=== PATIENT | male | born 1975 | race Caucasian/White ===

== ENCOUNTER 2016-10-17 17:42 | Emergency (ER) | payer OTHER ==
[~2016-10-17] VITALS: Ht 165.1 cm; Wt 85.5 kg
[2016-10-17 17:46] VITALS: Ht 165.1 cm; Wt 85.5 kg
[2016-10-17 19:10] LABS: ADD SCAN DIFF NO
[2016-10-17 19:18] LABS: ADD UMIC YES; URINE BILIRUBIN (Dip) NEGATIVE (NEGATIVE); URINE BLOOD (Dip) TRACE (NEGATIVE); URINE COLOR LT. YELLOW (YELLOW); URINE GLUCOSE (Dip) NEGATIVE (NEGATIVE); URINE KETONES (Dip) NEGATIVE (NEGATIVE); URINE LEUKOCYTE ESTERASE (Dip) NEGATIVE (NEGATIVE); URINE NITRITE (Dip) NEGATIVE (NEGATIVE); URINE TOTAL PROTEIN (Dip) NEGATIVE (NEGATIVE); URINE UROBILINOGEN (Dip) 0.2 E.U./dL (0.1-1.0)
[2016-10-17 19:26] LABS: ALBUMIN 4.2 g/dl (3.3-4.9); POTASSIUM 4.1 mmol/L (3.5-5.1)
[2016-10-17 19:28] LABS: CREATININE 1.09 mg/dl (0.61-1.24)
[2016-10-17 19:29] LABS: URINE RBCS 0-2 /HPF (0)
[2016-10-17 19:29] LABS: ALBUMIN/GLOBULIN RATIO 1.4; BILIRUBIN,INDIRECT 0.3 mg/dl (0-1.1); BILIRUBIN,TOTAL 0.3 mg/dl (0.2-1.3); CALCIUM 9.2 mg/dl (8.4-10.2); TOTAL PROTEIN 7.2 g/dl (6.1-8.1)
[2016-10-17 19:36] LABS: BASOPHIL # 0.1 10^3/ul (0.0-0.1); BASOPHILS % 0.6 % (0.0-2.0); EOSINOPHILS # 0.2 10^3/ul (0.0-0.5); HEMATOCRIT 46.6 % (42.0-52.0); HEMOGLOBIN 16.4 g/dl (14.0-18.0); LYMPHOCYTES # 2.6 10^3/ul (0.8-2.9); LYMPHOCYTES % 25.8 % (15.0-51.0); MEAN CORPUSCULAR HGB CONC 35.2 g/dl (32.0-37.0); MEAN CORPUSCULAR VOLUME 85.3 fl (82.0-101.0); MONOCYTE # 0.6 10^3/ul (0.3-0.9); MONOCYTES % 6.3 % (0.0-11.0); NEUTROPHIL # 6.5 10^3/ul (1.6-7.5); PLATELET COUNT 238 10^3/UL (140-415); RED BLOOD COUNT 5.46 10^6/ul (4.70-6.10); RED CELL DISTRIBUTION WIDTH 11.8 % (11.5-14.5)
--- NOTE | 2016-10-17 19:50 | ERD ---
ER Documentation Chief Complaint Date/Time DATE: 10/17/16 TIME: 19:50 Chief Complaint Complains of abdominal pain x 3 days HPI This is a 41-year-old male presenting to the emergency room complaining of left lower quadrant abdominal pain that comes and goes for the past 3 months. Patient states the past day the pain has been 8 out of 10 however he denies any current pain right now. Patient denies any fevers, nausea, vomiting, diarrhea. He states that his last bowel movement was couple hours ago and was normal. Patient states that his last meal was around 4 PM and he tolerated it well. Patient has never had any abdominal surgeries. ROS All systems reviewed and are negative except as per history of present illness. Medications Home Meds Active Scripts Ibuprofen* (Ibuprofen*) 600 Mg Tablet, 600 MG PO Q6H Y for PAIN, #30 TAB Prov:JAJA HARRIS PA-C 10/17/16 Hydrocodone/Acetaminophen ([place] 5-325 Tablet) 1 Each Tablet, 1 EACH PO Q4 Y for PAIN LEVEL 6-10, #7 TAB Prov:JAJA HARRIS PA-C 10/17/16 PMhx/Soc Medical and Surgical Hx: pt denies Medical Hx, pt denies Surgical Hx Hx Alcohol Use: Yes (SOCIAL DRINKER) Hx Substance Use: No Hx Tobacco Use: No Smoking Status: Never smoker Physical Exam Vitals Vital Signs Date Time Temp Pulse Resp B/P Pulse Ox O2 Delivery O2 Flow Rate FiO2 10/17/16 20:16 97.9 79 17 124/73 99 Room Air 10/17/16 17:46 97.8 69 20 132/78 99 Physical Exam GENERAL: well-developed/well-nourished, in no apparent distress, non-toxic appearing HENT: NC/AT, moist mucous membranes EYES: Conjunctiva normal NECK: Supple, no lymphadenopathy PULM: CTA bilaterally, no rales, rhonchi, or wheezing heard CV: Normal S1S2, RRR, good capillary refill GI: Soft, non-distended, non-tender to palpation Normal bowel sounds, no masses or organomegaly felt on exam No gross peritonitis, no bruits Negative Rovsing, negative Maddox, negative McBurney's point, Negative CVAT BACK: No masses EXT: No clubbing, cyanosis, or edema NEURO: Alert and Orientated SKIN: Intact, normal turgor PSYCH: Normal mood and mentation Result Diagram: 10/17/16184910/17/161849 Results 24 hrs Laboratory Tests Test 10/17/16 18:45 10/17/16 18:50 Urine Color LT. YELLOW Urine Clarity CLEAR Urine pH 5.5 Urine Specific [place] <=1.005 Urine Ketones NEGATIVE Urine Nitrite NEGATIVE Urine Bilirubin NEGATIVE Urine Urobilinogen 0.2 E.U./dL Urine Leukocyte Esterase NEGATIVE Urine Microscopic RBC 0-2/HPF Urine Microscopic WBC 0-2/HPF Urine Hemoglobin TRACE Urine Glucose NEGATIVE% Urine Total Protein NEGATIVE White Blood Count 10.010^3/ul Red Blood Count 5.4610^6/ul Hemoglobin 16.4g/dl Hematocrit 46.6% Mean Corpuscular Volume 85.3fl Mean Corpuscular Hemoglobin 30.0pg Mean Corpuscular Hemoglobin Concent 35.2g/dl Red Cell Distribution Width 11.8% Platelet Count 50041^3/UL Mean Platelet Volume 11.0fl Neutrophils % 65.0% Lymphocytes % 25.8% Monocytes % 6.3% Eosinophils % 2.0% Basophils % 0.6% Nucleated Red Blood Cells % 0.0/100WBC Neutrophils # 6.510^3/ul Lymphocytes # 2.610^3/ul Monocytes # 0.610^3/ul Eosinophils # 0.210^3/ul Basophils # 0.110^3/ul Nucleated Red Blood Cells # 0.010^3/ul Sodium Level 142mmol/L Potassium Level 4.1mmol/L Chloride Level 102mmol/L Carbon Dioxide Level 30mmol/L Anion Gap 14 Blood Urea Nitrogen 12mg/dl Creatinine 1.09mg/dl Glucose Level 77mg/dl Calcium Level 9.2mg/dl Total Bilirubin 0.3mg/dl Direct Bilirubin 0.00mg/dl Indirect Bilirubin 0.3mg/dl Aspartate Amino Transf (AST/SGOT) 21IU/L Alanine Aminotransferase (ALT/SGPT) 32IU/L Alkaline Phosphatase 81IU/L Total Protein 7.2g/dl Albumin 4.2g/dl Globulin 3.00g/dl Albumin/Globulin Ratio 1.40 Lipase 103U/L Procedures/MDM This is a 41-year-old male presenting to the emergency room complaining of left lower quadrant abdominal pain that comes and goes for the past 3 months. Patient states the past day the pain has been 8 out of 10 however he denies any current pain right now. Patient appears well, his abdominal exam was unremarkable. My differentials include but not limited to diverticulitis, never nephrolithiasis, appendicitis, hernia, pancreatitis, and other acute abdominal conditions vs nonspecific abdomen. I have discussed the risks versus the benefits of a CT scan, I have offered patient to do a CT scan of his abdomen to rule out any acute abdominal conditions however since patient does not have any abdominal pain at this time patient refuses CT scan. I discussed with patient that when he gets the pain again to return to the emergency department. Lab work was drawn. CBC did not show any evidence of leukocytosis or anemia. CMP did not show any evidence of renal, liver, or electrolyte abnormalities. Lipase was normal. UA did not show any evidence of hemoglobin or urinary tract infection. Patient was not given any pain medications in the ED. I discussed the patient return to the ER for any worsening signs or symptoms. A prescription for ibuprofen and [place] was provided. Patient understands and agrees with plan Departure Diagnosis: Primary Impression: Abdominal pain Condition: Stable JAJA HARRIS PA-C Oct 17, 2016 19:50
[2016-10-17] MEDS ORDERED: HYDR-906 PO (19:51)
[2016-10-17] MEDS ORDERED: IBUP-1542 PO (19:51)
[2016-10-17 20:16] VITALS: BP 124/73; PULSE 79; RESP 17; TEMP 97.9
== END 2016-10-17 20:18 | disposition home or self-care (01) ==
LOC: FTE 17:42
DX: R10.32 Left lower quadrant pain (principal)
CPT/HCPCS: 80053; 81001; 83690; 85025; Z7502; 81003; 99283

== ENCOUNTER 2016-10-19 14:31 | Emergency (ER) | payer OTHER ==
[~2016-10-19] VITALS: Ht 170.2 cm; Wt 84.0 kg
[~2016-10-19 14:31] MED LIST: HYDR-906 PO; IBUP-1542 PO
[2016-10-19 14:49] VITALS: Ht 170.2 cm; Wt 84.0 kg
--- NOTE | 2016-10-19 16:46 | RADRPT ---
PROCEDURE: CT abdomen and pelvis without contrast. CLINICAL INDICATION: Left lower quadrant pain TECHNIQUE: Continues 2.5 mm axial images were obtained from the domes of the diaphragms to the inf erior pubic rami. No oral or intravenous contrast was administered. The calculated dose length prod uct (DLP) = 1006.51 mGy-cm. Exam CTDlvol = 16.1 mGy. One or more of the following dose reduction techniques were used: Automated exposure control, adjustment of the mA and or KV according to patien t size, or use of iterative reconstruction technique. One or more of the following dose reduction t echniques were used: Automated exposure control, adjustment of the mA and or KV according to patient size, or use of iterative reconstruction technique. COMPARISON: None. FINDINGS: Lung bases are clear. No pleural pericardial fluid is seen. There is borderline cardiomegaly. Liver, gallbladder, pancreas, spleen, and adrenals are within normal limits. Demonstrates a 10.4 x 5.6 mm calorie nonobstructing calculus in the lower pole of the left kidney. There is mild fullness of the left ureter with minimal wall thickening. This may be secondary to a recently passed stone versus an ascending urinary tract infection. Correlation with urinalysis is recommended. The right kidney and collecting system are normal. There is a 1.5 and 1.3 cm right renal cyst. Aorta is nor mal in caliber. There is no pathologically enlarged mesenteric lymph nodes. The stomach and small bowel loops are within normal limits. No small bowel dilatation or obstruction is identified. Ther e is no free fluid, free air, abscess in the upper abdomen CT pelvis: Images through the pelvis demonstrate no free fluid, free air, abscess. Bladder is part ially distended. There are no obvious bladder calculi. Prostate and seminal vesicles are within no rmal limits. Evaluation of the colon demonstrates no diverticulosis, diverticulitis or acute coliti s. Normal appendix is visualized. Terminal ileum is unremarkable. There are no pathologically enl arged iliac chain lymph nodes. No destructive bony lesions are seen. There is partial sacralization of the L1 vertebral body. IMPRESSION: 1. 10.4 x 5.6 mm nonobstructing left lower pole intrarenal calculus. 2. Minimal fullness of the proximal left ureter with thickening of the wall and without significant calyceal dilatation. The appearance may be secondary to a recently passed renal stone/gravel versu s ascending urinary tract infection. Recommend correlation with urinalysis. 3. Right kidney and collecting system are normal. 4. Right renal cyst 5. No free fluid, free air, abscess in the abdomen or pelvis 6. Normal appendix. 7. Borderline cardiomegaly RPTAT: HH .Everett Camp MD, MD Date Time Electronically viewed and signed by .Everett Camp MD, on 10/19/2016 16:46 .W/
--- NOTE | 2016-10-19 17:01 | ERD ---
ER Documentation Chief Complaint Date/Time DATE: 10/19/16 TIME: 17:01 Chief Complaint LEFT LOWER QUAD PAIN, SEEN ON TUESDAY, DENIES PAIN NOW HPI This a 41-year-old male who presents the emergency department today complaining of left lower abdominal pain for the past couple of months. Patient states he was seen here on Tuesday and had blood work done but did not have any pain at that time. He states he was told to come back here when he had pain. Patient states he had pain upon arrival to the ER but had resolved. Denies any nausea vomiting,, diarrhea fevers or chills, back pain. Denies any testicular pain or swelling. ROS All systems reviewed and are negative except as per history of present illness. Medications Home Meds Active Scripts Ciprofloxacin Hcl* (Ciprofloxacin Hcl*) 500 Mg Tablet, 500 MG PO BID for 7 Days , TAB Prov:MARTY OROPEZAC 10/19/16 Naproxen* (Naprosyn*) 500 Mg Tablet, 500 MG PO BID Y for PAIN AND/OR INFLAMMATION, #30 TAB Prov:MARTY OROPEZAC 10/19/16 Hydrocodone/Acetaminophen ([place] 5-325 Tablet) 1 Each Tablet, 1 TAB PO Q6H Y for PAIN, #12 TAB Prov:MARTY OROPEZAC 10/19/16 Ibuprofen* (Ibuprofen*) 600 Mg Tablet, 600 MG PO Q6H Y for PAIN, #30 TAB Prov:JAJA HARRIS-C 10/17/16 Hydrocodone/Acetaminophen ([place] 5-325 Tablet) 1 Each Tablet, 1 EACH PO Q4 Y for PAIN LEVEL 6-10, #7 TAB Prov:JAJA HARRIS-C 10/17/16 Allergies Allergies: Coded Allergies: No Known Allergy (Unverified , 10/19/16) PMhx/Soc Medical and Surgical Hx: pt denies Medical Hx, pt denies Surgical Hx Hx Alcohol Use: Yes (SOCIAL DRINKER) Hx Substance Use: No Hx Tobacco Use: No Smoking Status: Never smoker Physical Exam Vitals Vital Signs Date Time Temp Pulse Resp B/P Pulse Ox O2 Delivery O2 Flow Rate FiO2 10/19/16 14:49 97.9 63 20 121/75 99 Physical Exam Const: No acute distress Head: Atraumatic Eyes: Normal Conjunctiva ENT: Normal External Ears, Nose and Mouth. Neck: Full range of motion..~ No meningismus. Resp: Clear to auscultation bilaterally Cardio: Regular rate and rhythm, no murmurs Abd: Soft, non tender, non distended. Normal bowel sounds. No right lower quadrant pain. No left lower quadrant pain. Skin: No petechiae or rashes Back: No midline or flank tenderness. No CVA tenderness. Ext: No cyanosis, or edema Neur: Awake and alert Psych: Normal Mood and Affect Results 24 hrs DIAGNOSTIC IMAGING REPORT Patient: GERARDO TEAGUE : 1975 Age: 41 Sex: M MR #: [id number] DOS: 10/19/16 1618 Ordering MD: MARTY OROPEZA PA-C Location: [facility] Room/Bed: PROCEDURE: CT abdomen and pelvis without contrast. CLINICAL INDICATION: Left lower quadrant pain TECHNIQUE: Continues 2.5 mm axial images were obtained from the domes of the diaphragms to the inferior pubic rami. No oral or intravenous contrast was administered. The calculated dose length product (DLP) = 1006.51 mGy-cm. Exam CTDlvol = 16.1 mGy. One or more of the following dose reduction techniques were used: Automated exposure control, adjustment of the mA and or KV according to patient size, or use of iterative reconstruction technique. One or more of the following dose reduction techniques were used: Automated exposure control, adjustment of the mA and or KV according to patient size, or use of iterative reconstruction technique. COMPARISON: None. FINDINGS: Lung bases are clear. No pleural pericardial fluid is seen. There is borderline cardiomegaly. Liver, gallbladder, pancreas, spleen, and adrenals are within normal limits. Demonstrates a 10.4 x 5.6 mm calorie nonobstructing calculus in the lower pole of the left kidney. There is mild fullness of the left ureter with minimal wall thickening. This may be secondary to a recently passed stone versus an ascending urinary tract infection. Correlation with urinalysis is recommended. The right kidney and collecting system are normal. There is a 1.5 and 1.3 cm right renal cyst. Aorta is normal in caliber. There is no pathologically enlarged mesenteric lymph nodes. The stomach and small bowel loops are within normal limits. No small bowel dilatation or obstruction is identified. There is no free fluid, free air, abscess in the upper abdomen CT pelvis: Images through the pelvis demonstrate no free fluid, free air, abscess. Bladder is partially distended. There are no obvious bladder calculi. Prostate and seminal vesicles are within normal limits. Evaluation of the colon demonstrates no diverticulosis, diverticulitis or acute colitis. Normal appendix is visualized. Terminal ileum is unremarkable. There are no pathologically enlarged iliac chain lymph nodes. No destructive bony lesions are seen. There is partial sacralization of the L1 vertebral body. IMPRESSION: 1. 10.4 x 5.6 mm nonobstructing left lower pole intrarenal calculus. 2. Minimal fullness of the proximal left ureter with thickening of the wall and without significant calyceal dilatation. The appearance may be secondary to a recently passed renal stone/gravel versus ascending urinary tract infection. Recommend correlation with urinalysis. 3. Right kidney and collecting system are normal. 4. Right renal cyst 5. No free fluid, free air, abscess in the abdomen or pelvis 6. Normal appendix. 7. Borderline cardiomegaly RPTAT: HH .Everett Camp MD, MD Date Time Electronically viewed and signed by .Everett Camp MD, MD on 10/19/2016 16:46 .W/ CC: MARTY OROPEZA PA-C Procedures/[facility] This is a 41-year-old male who presents to the emergency department today complaining of left lower quadrant pain that is been intermittent for the past couple of months. Patient did not have any abdominal pain on physical exam. Patient was seen here in the emergency department on October 17 and had laboratory work done at that time that was within normal limits. His UA was negative. I explained to the patient that I did not feel it was necessary to repeat laboratory work today as his last laboratory work was within normal limits. I did offer to obtain a CT of the abdomen and patient has agreed. I also obtained a UA UA shows trace leukocyte esterase and 3+ blood. Urine was sent for culture. CT abdomen pelvis noncontrast shows a 10.4 x 5.6 mm nonobstructing left lower pole intrarenal calculus. There is minimal fullness of the proximal left ureter with thickening of the wall without significant help dilatation. The appearance may be secondary to recently passed renal stone versus urinary tract infection. The right kidney and collecting system are normal. There is a right renal cyst. There is no free fluid, free air or abscess. There is appendix normal. There is borderline cardiomegaly. There is no small bowel dilatation or obstruction. Patients symptoms at this time most consistent with renal colic and urinary tract infection. Patient is afebrile and otherwise well-appearing. He is walking around the emergency room in no acute distress. He has no CVA tenderness. Low suspicion for pyelonephritis. Low suspicion for acute surgical abdomen. Patient will be given a prescription for [place], Naprosyn and Cipro. At this time the patient is stable for discharge and outpatient management. Patient should follow up with their PCP in the next 1-2 days. He was given a list of referrals as well as urology referrals. They may return to the emergency department sooner for any persistent or worsening of symptoms. Patient understood and agreed with the plan. Departure Diagnosis: Primary Impression: Kidney stones Additional Impression: UTI (urinary tract infection) Urinary tract infection type: site unspecified Hematuria presence: with hematuria Qualified Code: N39.0 - Urinary tract infection with hematuria, site unspecified Condition: MARTY Rios PA-C Oct 19, 2016 17:01
[2016-10-19] MEDS ORDERED: HYDR-906 PO (18:54)
[2016-10-19] MEDS ORDERED: CIPR500T4 PO (18:54)
[2016-10-19] MEDS ORDERED: NAPR-260 PO (18:54)
[2016-10-19 19:10] VITALS: BP 145/90; PULSE 58; RESP 18; TEMP 98.4
== END 2016-10-19 19:10 | disposition home or self-care (01) ==
LOC: FTE 14:31
DX: N20.0 Calculus of kidney (principal); N39.0 Urinary tract infection, site not specified
CPT/HCPCS: 74176; 81003; Z7502

== ENCOUNTER 2017-04-03 16:00 | Emergency (ER) | payer OTHER ==
[~2017-04-03] VITALS: Ht 162.6 cm; Wt 89.0 kg
[~2017-04-03 16:00] MED LIST changes: +CIPR500T4 PO; +NAPR-260 PO
[2017-04-03 16:01] VITALS: Ht 162.6 cm; Wt 89.0 kg
[2017-04-03] MEDS ORDERED: HYDROmorphONE 1 MG/ML SYG IV STA (16:56)
[2017-04-03] MEDS ORDERED: ONDANSETRON 4 MG INJ IV STA (16:56)
[2017-04-03] MEDS ORDERED: SOD CHLORIDE 0.9% 1,000 ML IV STA (16:56)
[2017-04-03] MEDS ORDERED: HYDR-906 PO (17:00)
[2017-04-03 17:20] LABS: ADD UMIC YES; UR ASCORBIC ACID NEGATIVE (NEGATIVE); UR BILIRUBIN (Dip) NEGATIVE (NEGATIVE); UR BLOOD (Dip) 1+ mg/dL (NEGATIVE); UR CLARITY SLIGHTLY CLOUDY (CLEAR); UR COLOR YELLOW (YELLOW); UR GLUCOSE (Dip) NEGATIVE (NEGATIVE); UR KETONES (Dip) NEGATIVE (NEGATIVE); UR LEUKOCYTE ESTERASE (Dip) TRACE Leu/ul (NEGATIVE); UR MUCUS FEW /HPF (NONE SEEN); UR NITRITE (Dip) NEGATIVE (NEGATIVE); UR RBC 26 /HPF (0-5); UR SPECIFIC GRAVITY (Dip) 1.023 (1.003-1.030); UR TOTAL PROTEIN (Dip) 2+ mg/dl (NEGATIVE); UR UROBILINOGEN (Dip) NEGATIVE (NEGATIVE)
[2017-04-03 17:24] LABS: BASOPHIL # 0.1 10^3/ul (0.0-0.1); BASOPHILS % 0.7 % (0.0-2.0); EOSINOPHILS # 0.3 10^3/ul (0.0-0.5); EOSINOPHILS % 3.9 % (0.0-7.0); HEMATOCRIT 45.9 % (42.0-52.0); HEMOGLOBIN 16.5 g/dl (14.0-18.0); LYMPHOCYTES # 2.1 10^3/ul (0.8-2.9); LYMPHOCYTES % 26.3 % (15.0-51.0); MEAN CORPUSCULAR HEMOGLOBIN 30.5 pg (29.0-33.0); MEAN CORPUSCULAR HGB CONC 35.9 g/dl (32.0-37.0); MEAN CORPUSCULAR VOLUME 84.8 fl (82.0-101.0); MEAN PLATELET VOLUME 11.1 fl (7.4-10.4); MONOCYTE # 0.6 10^3/ul (0.3-0.9); MONOCYTES % 7.5 % (0.0-11.0); NEUTROPHILS % 61.4 % (39.0-77.0); PLATELET COUNT 206 10^3/UL (140-415); RED BLOOD COUNT 5.41 10^6/ul (4.70-6.10); RED CELL DISTRIBUTION WIDTH 11.9 % (11.5-14.5); WHITE BLOOD COUNT 8.1 10^3/ul (4.8-10.8)
[2017-04-03 17:43] LABS: ALBUMIN 4.5 g/dl (3.3-4.9); ALBUMIN/GLOBULIN RATIO 1.36; BILIRUBIN,INDIRECT 0.6 mg/dl (0-1.1); BILIRUBIN,TOTAL 0.6 mg/dl (0.2-1.3); CALCIUM 9.1 mg/dl (8.4-10.2); CREATININE 0.81 mg/dl (0.61-1.24); POTASSIUM 3.8 mmol/L (3.5-5.1); TOTAL PROTEIN 7.8 g/dl (6.1-8.1)
[2017-04-03] MEDS ORDERED: CIPR500T4 PO (18:06)
[2017-04-03 19:13] VITALS: BP 121/71; PULSE 61; RESP 16
--- NOTE | 2017-04-03 21:11 | ERD ---
ER Documentation Chief Complaint Date/Time DATE: 04/03/17 TIME: 21:06 Chief Complaint left flank pain, has kidney stone needs pain control, x 3 days HPI 41-year-old male history of nephrolithiasis presents to the emergency department with persistent intent moderate to severe left flank pain for the past few months. Patient is a 10-11 mm renal stone scheduled to have lithotripsy tomorrow morning with the urologist. Patient presents today for pain control since patient was instructed to not take any NSAIDs and he was confused on what medication to take. He denies any fevers, painful urination. He admits to having hematuria. ROS All systems reviewed and are negative except as per history of present illness. Medications Home Meds Active Scripts Ciprofloxacin Hcl* (Ciprofloxacin Hcl*) 500 Mg Tablet, 500 MG PO BID for 7 Days , TAB Prov:JAJA HARRIS-C 04/03/17 Hydrocodone/Acetaminophen ([place] 5-325 Tablet) 1 Each Tablet, 1-2 TAB PO Q6H Y for PAIN, #30 TAB Prov:JAJA HARRISC 04/03/17 Ciprofloxacin Hcl* (Ciprofloxacin Hcl*) 500 Mg Tablet, 500 MG PO BID for 7 Days , TAB Prov:MARTY OROPEZAC 10/19/16 Naproxen* (Naprosyn*) 500 Mg Tablet, 500 MG PO BID Y for PAIN AND/OR INFLAMMATION, #30 TAB Prov:MARTY OROPEZAC 10/19/16 Hydrocodone/Acetaminophen ([place] 5-325 Tablet) 1 Each Tablet, 1 TAB PO Q6H Y for PAIN, #12 TAB Prov:MARTY OROPEZAC 10/19/16 Ibuprofen* (Ibuprofen*) 600 Mg Tablet, 600 MG PO Q6H Y for PAIN, #30 TAB Prov:JAJA HARRISC 10/17/16 Hydrocodone/Acetaminophen ([place] 5-325 Tablet) 1 Each Tablet, 1 EACH PO Q4 Y for PAIN LEVEL 6-10, #7 TAB Prov:JAJA HARRIS-C 10/17/16 Allergies Allergies: Coded Allergies: No Known Allergy (Unverified , 10/19/16) PMhx/Soc Medical and Surgical Hx: pt denies Medical Hx, pt denies Surgical Hx Hx Alcohol Use: Yes (SOCIAL DRINKER) Hx Substance Use: No Hx Tobacco Use: No Smoking Status: Never smoker Physical Exam Vitals Vital Signs Date Time Temp Pulse Resp B/P Pulse Ox O2 Delivery O2 Flow Rate FiO2 04/03/17 19:13 61 16 121/71 99 Room Air 04/03/17 16:01 98.1 72 18 132/71 99 Physical Exam Const: Well-nourished no acute distress Head: Atraumatic Eyes: Normal Conjunctiva ENT: Normal External Ears, Nose and Mouth. Neck: Full range of motion..~ No meningismus. Resp: Clear to auscultation bilaterally Cardio: Regular rate and rhythm, no murmurs Abd: Soft, non tender, non distended. Normal bowel sounds Skin: No petechiae or rashes Back: No midline or flank tenderness Ext: No cyanosis, or edema Neur: Awake and alert Psych: Normal Mood and Affect Result Diagram: 04/03/17 1710 04/03/17 1710 Results 24 hrs Laboratory Tests Test 04/03/17 17:00 04/03/17 17:10 Urine Color YELLOW Urine Clarity SLIGHTLY CLOUDY Urine pH 5.0 Urine Specific [place] 1.023 Urine Ketones NEGATIVEmg/dL Urine Nitrite NEGATIVEmg/dL Urine Bilirubin NEGATIVEmg/dL Urine Urobilinogen NEGATIVEmg/dL Urine Leukocyte Esterase TRACELeu/ul Urine Microscopic RBC 26/HPF Urine Microscopic WBC 14/HPF Urine Calcium Oxalate Crystals MODERATE/HPF Urine Mucus FEW/HPF Urine Hemoglobin 1+mg/dL Urine Glucose NEGATIVEmg/dL Urine Total Protein 2+mg/dl White Blood Count 8.110^3/ul Red Blood Count 5.4110^6/ul Hemoglobin 16.5g/dl Hematocrit 45.9% Mean Corpuscular Volume 84.8fl Mean Corpuscular Hemoglobin 30.5pg Mean Corpuscular Hemoglobin Concent 35.9g/dl Red Cell Distribution Width 11.9% Platelet Count 75965^3/UL Mean Platelet Volume 11.1fl Neutrophils % 61.4% Lymphocytes % 26.3% Monocytes % 7.5% Eosinophils % 3.9% Basophils % 0.7% Nucleated Red Blood Cells % 0.0/100WBC Neutrophils # (Manual) 5.010^3/ul Lymphocytes # 2.110^3/ul Monocytes # 0.610^3/ul Eosinophils # 0.310^3/ul Basophils # 0.110^3/ul Nucleated Red Blood Cells # 0.010^3/ul Sodium Level 141mmol/L Potassium Level 3.8mmol/L Chloride Level 104mmol/L Carbon Dioxide Level 27mmol/L Anion Gap 14 Blood Urea Nitrogen 10mg/dl Creatinine 0.81mg/dl Glucose Level 99mg/dl Calcium Level 9.1mg/dl Total Bilirubin 0.6mg/dl Direct Bilirubin 0.00mg/dl Indirect Bilirubin 0.6mg/dl Aspartate Amino Transf (AST/SGOT) 20IU/L Alanine Aminotransferase (ALT/SGPT) 39IU/L Alkaline Phosphatase 80IU/L Total Protein 7.8g/dl Albumin 4.5g/dl Globulin 3.30g/dl Albumin/Globulin Ratio 1.36 Lipase 89U/L Current Medications Medications (Trade) Dose Ordered Sig/Bruce Route PRN Reason Start Time Stop Time Status Last Admin Dose Admin Sodium Chloride (NS) 1,000 ml @ 1,000 mls/hr Q1H STAT IV 04/03/17 16:56 04/03/17 17:55 DC 04/03/17 17:19 Hydromorphone HCl (Dilaudid) 0.5 mg ONCE STAT IV 04/03/17 16:56 04/03/17 16:58 DC 04/03/17 17:19 Ondansetron HCl (Zofran Inj) 4 mg ONCE STAT IV 04/03/17 16:56 04/03/17 16:58 DC 04/03/17 17:19 Procedures/MDM 41-year-old male with nephrolithiasis 10 mm renal stone who is planned to have lithotripsy tomorrow. Patient presents today for pain control since he was instructed to not take any NSAIDs for the surgery, he was confused on what medication to take. IV access established, patient was given 1 L of fluids Dilaudid and Zofran. Patient has significant improvement in pain. Patient stable to be discharged home to follow-up with his surgeon as planned. CBC did not show any leukocytosis or anemia. CMP did not show any evidence of renal failure. UA showed trace leukocyte esterase, 14 WBC, no nitrite. I have consulted with my supervising physician , this is likely not a urinary tract infection however prescription for Cipro was provided. Given patient the diagnostic testing and forms for him to show his surgery tomorrow. Patient stable to discharged home and instructed to follow-up as planned. He understands and agrees with this plan Departure Diagnosis: Primary Impression: Nephrolithiasis Condition: Stable Patient Instructions: Kidney Stone (Urine) Additional Instructions: Visite a starr mdico maana para un EXAMEN.Regrese a estas instalaciones si no se mejora chris esperbamos o chris le dijimos. [place] toda la medicina elizabeth y chris se le indic. Regrese a estas instalaciones si no se mejora chris esperbamos o chris le dijimos. Visite a starr mdbraeden leahy para un EXAMEN.Regrese a estas instalaciones si no se mejora chris esperbamos o chris le dijimos. La medicina que se le recet puede causarle sueo.NO DEBE MANEJAR NI OPERAR MAQUINARIAS PELIGROSAS mientras esta tomando esta medicina! JAJA HARRIS PA-C Apr 03, 2017 21:11
== END 2017-04-03 19:13 | disposition home or self-care (01) ==
LOC: FTE 16:00
DX: N20.0 Calculus of kidney (principal)
CPT/HCPCS: 36415; 80053; 81001; 83690; 85025; 96374; 96375; J1170; J2405; J7030; Z7502

== ENCOUNTER 2017-04-09 08:29 | Emergency (ER) | payer OTHER ==
[~2017-04-09] VITALS: Ht 167.6 cm; Wt 83.0 kg
[2017-04-09 08:31] VITALS: Ht 167.6 cm; Wt 83.0 kg
[2017-04-09] MEDS ORDERED: CHLORPROMAZINE 25 MG INJ IM ONE (09:00)
--- NOTE | 2017-04-09 09:18 | ERD ---
ER Documentation Chief Complaint Date/Time DATE: 04/09/17 TIME: 09:14 Chief Complaint HICCUPS X 4 DAYS, DENIES PAIN,NO N/V. HX OF KIDNEY STONE SURGERY 04/04/17 HPI This a 41-year-old male who presents the emergency department today with his for complaints of hiccups for the past 4 days. Per patient had surgery for kidney stones on April 04 and the patient started with hiccups on April 05. They have been slowly getting more persistent. States that he was "knocked out during surgery" but is unsure what kind of anesthesia he has had. States that he had been taking antibiotics but completed his course yesterday. States he took [place] this morning. Denies any fevers or chills or pain. ROS All systems reviewed and are negative except as per history of present illness. Medications Home Meds Active Scripts Metoclopramide* (Reglan*) 10 Mg Tablet, 10 MG PO TID Y for NAUSEA AND/OR VOMITING for 7 Days, #21 TAB Prov:MARTY OROPEZA PA-C 04/09/17 Ciprofloxacin Hcl* (Ciprofloxacin Hcl*) 500 Mg Tablet, 500 MG PO BID for 7 Days , TAB Prov:JAJA HARRISC 04/03/17 Hydrocodone/Acetaminophen ([place] 5-325 Tablet) 1 Each Tablet, 1-2 TAB PO Q6H Y for PAIN, #30 TAB Prov:JAJA HARRISC 04/03/17 Ciprofloxacin Hcl* (Ciprofloxacin Hcl*) 500 Mg Tablet, 500 MG PO BID for 7 Days , TAB Prov:MARTY OROPEZA PA-C 10/19/16 Naproxen* (Naprosyn*) 500 Mg Tablet, 500 MG PO BID Y for PAIN AND/OR INFLAMMATION, #30 TAB Prov:MARTY OROPEZAC 10/19/16 Hydrocodone/Acetaminophen ([place] 5-325 Tablet) 1 Each Tablet, 1 TAB PO Q6H Y for PAIN, #12 TAB Prov:MARTY OROPEZAC 10/19/16 Ibuprofen* (Ibuprofen*) 600 Mg Tablet, 600 MG PO Q6H Y for PAIN, #30 TAB Prov:JAJA HARRISC 10/17/16 Hydrocodone/Acetaminophen ([place] 5-325 Tablet) 1 Each Tablet, 1 EACH PO Q4 Y for PAIN LEVEL 6-10, #7 TAB Prov:JAJA HARRIS PA-C 10/17/16 Allergies Allergies: Coded Allergies: No Known Allergy (Unverified , 04/09/17) PMhx/Soc Medical and Surgical Hx: pt denies Surgical Hx History of Surgery: Yes (Kidney stone removal 04/04/17) Hx Alcohol Use: Yes (SOCIAL DRINKER) Hx Substance Use: No Hx Tobacco Use: No Smoking Status: Never smoker Physical Exam Vitals Vital Signs Date Time Temp Pulse Resp B/P Pulse Ox O2 Delivery O2 Flow Rate FiO2 04/09/17 08:31 99.0 69 20 135/82 99 Physical Exam Const: NAD Head: Atraumatic Eyes: Normal Conjunctiva ENT: Normal External Ears, Nose and Mouth. Neck: Full range of motion..~ No meningismus. Resp: Clear to auscultation bilaterally. No absent breath sounds. No wheezing. Cardio: Regular rate and rhythm, no murmurs Abd: Soft, non tender, non distended. Normal bowel sounds Skin: No petechiae or rashes Back: No midline or flank tenderness Ext: No cyanosis, or edema Neur: Awake and alert Psych: Normal Mood and Affect Results 24 hrs Current Medications Medications (Trade) Dose Ordered Sig/Bruce Route PRN Reason Start Time Stop Time Status Last Admin Dose Admin Chlorpromazine (Thorazine) 25 mg ONCE ONCE IM 04/09/17 09:00 04/09/17 09:04 DC 04/09/17 09:28 DIAGNOSTIC IMAGING REPORT Patient: GERARDO TEAGUE : 1975 Age: 41 Sex: M MR #: [id number] DOS: 04/09/17 0000 Ordering MD: MARTY OROPEZA PA-C Location: [facility] Room/Bed: PROCEDURE: XR Chest. CLINICAL INDICATION: chest pain TECHNIQUE: Single frontal view of the chest was obtained COMPARISON: None FINDINGS: The heart and mediastinum are within normal limits. The lungs are clear. There is no pleural effusion or pneumothorax. RPTAT: AA IMPRESSION: No acute disease. .Freedom Riojas MD, MD Date Time Electronically viewed and signed by .Freedom Riojas MD, MD on 04/09/2017 09: 30 .S/ CC: MARTY OROPEZA PA-C Procedures/MDM This is a 41-year-old male who presents to the emergency department today with persistent hiccups for the past 4 days. Patient started with hiccups after having surgery for kidney stones the day prior. Patient's urologist is Dr. Lee. Patient denies any pain or other symptoms at this time. Per report of the the patient had shockwave treatment but also surgery was through the patient's urethra and stents were placed to help remove the stones. Patient was unable to tell me about anesthesia however I suspect that patient was placed under general anesthesia and this may be result of that. I did discuss the patient with Dr. Reed and he has recommended an EKG and a chest x-ray. EKG read and interpreted by Dr. Reed. Rate [address] elevation. No QT prolongation. Low suspicion for acute PR, PE, pericarditis. CXRIs negative. Lungs are clear. There is no pleural effusion or pneumothorax. Patient's abdomen is soft and nontender. He has no pain and no other complaints and of low suspicion for perforation or free air or diaphragmatic abscess.Hiccups at this time likely from postoperative changes Patient was given 25 mg of Thorazine here in the emergency department. Patient continues to hiccup however it appeared to have slowed down..He will be given a prescription for Reglan for home. I have explained to the patient that this is not a life-threatening condition and that he may follow-up with his primary care doctor. Discussed the patient with both Dr. Reed and Dr. Brito and they are in agreement with the plan. Departure Diagnosis: Primary Impression: Hiccoughs Condition: Fair MARTY OROPEZA PA-C Apr 09, 2017 09:18
--- NOTE | 2017-04-09 09:30 | RADRPT ---
PROCEDURE: XR Chest. CLINICAL INDICATION: chest pain TECHNIQUE: Single frontal view of the chest was obtained COMPARISON: None FINDINGS: The heart and mediastinum are within normal limits. The lungs are clear. There is no pleural effusion or pneumothorax. RPTAT: AA IMPRESSION: No acute disease. .Freedom Riojas MD, Date Time Electronically viewed and signed by .Freedom Riojas MD, on 04/09/2017 09:30 .S/
[2017-04-09] MEDS ORDERED: METO10TA92 PO (10:18)
== END 2017-04-09 10:31 | disposition home or self-care (01) ==
LOC: FTE 08:29
DX: R06.6 Hiccough (principal); R07.9 Chest pain, unspecified
CPT/HCPCS: 71010; 93005; 96372; J3230; Z7502

== ENCOUNTER 2017-07-20 11:18 | Emergency (ER) | payer OTHER ==
[~2017-07-20] VITALS: Wt 89.0 kg
[~2017-07-20 11:18] MED LIST changes: +METO10TA92 PO
[2017-07-20] MEDS ORDERED: IBUP-1542 PO (13:54)
[2017-07-20] MEDS ORDERED: AMOX500C2 PO (13:54)
--- NOTE | 2017-07-20 18:46 | ERD ---
ER Documentation Chief Complaint Chief Complaint [facility] Patient is 41-year-old male who presents ED for concerns of throat pain 1 week reports pain with swallowing. Patient denies any drooling, trismus or hyperextension of his neck. Patient denies any fevers or chills. Patient denies any nausea, vomiting, diarrhea or abdominal pain. Patient denies any chest pain, shortness of breath, cough, left upper extremity pain or diaphoresis. Patient does report some right ear pain. No recent travel. No sick contacts. ROS All systems reviewed and are negative except as per history of present illness. Medications Home Meds Active Scripts Ibuprofen* (Motrin*) 600 Mg Tab, 600 MG PO Q6, #30 TAB Prov:JOVANI MILESC 07/20/17 Amoxicillin* (Amoxicillin*) 500 Mg Cap, 500 MG PO BID for 7 Days, CAP Prov:JOVANI MILESC 07/20/17 Metoclopramide* (Reglan*) 10 Mg Tablet, 10 MG PO TID Y for NAUSEA AND/OR VOMITING for 7 Days, #21 TAB Prov:MARTY OROPEZAC 04/09/17 Ciprofloxacin Hcl* (Ciprofloxacin Hcl*) 500 Mg Tablet, 500 MG PO BID for 7 Days , TAB Prov:JAJA HARRISC 04/03/17 Hydrocodone/Acetaminophen ([place] 5-325 Tablet) 1 Each Tablet, 1-2 TAB PO Q6H Y for PAIN, #30 TAB Prov:JAJA HARRISC 04/03/17 Ciprofloxacin Hcl* (Ciprofloxacin Hcl*) 500 Mg Tablet, 500 MG PO BID for 7 Days , TAB Prov:MARTY OROPEZAC 10/19/16 Naproxen* (Naprosyn*) 500 Mg Tablet, 500 MG PO BID Y for PAIN AND/OR INFLAMMATION, #30 TAB Prov:MARTY OROPEZAC 10/19/16 Hydrocodone/Acetaminophen ([place] 5-325 Tablet) 1 Each Tablet, 1 TAB PO Q6H Y for PAIN, #12 TAB Prov:MARTY OROPEZAC 10/19/16 Ibuprofen* (Ibuprofen*) 600 Mg Tablet, 600 MG PO Q6H Y for PAIN, #30 TAB Prov:BERNADINE HARRISSHA N. PA-C 10/17/16 Hydrocodone/Acetaminophen ([place] 5-325 Tablet) 1 Each Tablet, 1 EACH PO Q4 Y for PAIN LEVEL 6-10, #7 TAB Prov:BERNADINE HARRISJAYDENMike Brianne KINGSLEY 10/17/16 Allergies Allergies: Coded Allergies: No Known Allergy (Unverified , 07/20/17) PMhx/Soc History of Surgery: Yes (LITHOTRIPSY 2017) Anesthesia Reaction: No Hx Neurological Disorder: No Hx Respiratory Disorders: No Hx Cardiac Disorders: No Hx Psychiatric Problems: No Hx Miscellaneous Medical Probl: Yes (LEFT KIDNEY STONE) Hx Alcohol Use: No Hx Substance Use: No Hx Tobacco Use: No Smoking Status: Never smoker Physical Exam Vitals Vital Signs Date Time Temp Pulse Resp B/P Pulse Ox O2 Delivery O2 Flow Rate FiO2 07/20/17 11:22 98.7 60 18 131/76 99 Physical Exam GENERAL: Well-developed, well-nourished male. Appears in no acute distress. HEAD: Normocephalic, atraumatic. No deformities or ecchymosis. EYE: Pupils equal, round, and reactive to light. EOMs intact. No conjunctival erythema. No eye discharge. ENT: External ear without any masses or tenderness. Right auditory canal appears erythematous. Right tympanic membrane appears erythematous and bulging. TM normal. No mass or tenderness. Nasal mucosa pink with no discharge. Oropharynx is erythematous with bilateral tonsillar enlargement. No kissing tonsils. No unilateral or tonsillar swelling. No trismus. No drooling. NECK: Supple. No meningismus. Normal ROM of the neck. LUNGS: Clear to auscultation bilaterally. No rhonchi, wheezing, rales or coarse breath sounds. HEART: Regular rate and rhythm. No murmurs, rubs or gallops. EXTREMITES: Equal pulses bilaterally. No peripheral clubbing, cyanosis or edema. No unilateral leg swelling. NEUROLOGIC: Alert and oriented to person, place and time. Moving all four extremities. 5/5 strength in all extremities. Normal speech. Steady gait. SKIN: Normal color. Warm and dry. No rashes or lesions. Procedures/MDM MEDICAL DECISION MAKING: This is a 41-year-old male presents with throat pain 1 week. Vital signs were reviewed. Patient was afebrile. Patient was not hypoxic. The patient does not have trismus, muffled voice, uvula deviation, unilateral tonsillar swelling, or drooling. No signs of neck swelling or hyperextension of the neck noted. Physical exam findings are concerning for strep pharyngitis and acute otitis media. I will treat patient with a course of antibiotics at this time. I have a much lower clinical suspicion for epiglottitis, peritonsillar abscess, retropharyngeal abscess, [place] angina, strep pharyngitis, viral pharyngitis, dental abscess, pneumonia, pneumothorax, mastoiditis, meningitis or sepsis. It was nontoxic, [id number] prior to discharge. PRESCRIPTIONS: Amoxicillin. Patient advised to take full course of antibiotics. Ibuprofen DISCHARGE: At this time, patient is stable for discharge and outpatient management. Supportive therapies such as OTC throat lozenges and warm salt water gurgles were discussed. I have instructed the patient to follow-up with his/her primary care physician in 1-2 days. I have discussed with the patient the possibility of needing to see a specialist for further workup and imaging studies if symptoms persist. I have instructed the patient to promptly return to the ER for any new or worsening symptoms including increased pain, fever, nausea, vomiting, weakness or LOC. The patient and/or family expressed understanding of and agreement with this plan. All questions were answered. Home care instructions were provided. Disclaimer: Inadvertent spelling and grammatical errors are likely due to EHR/ dictation software use and do not reflect on the overall quality of patient care. Also, please note that the electronic time recorded on this note does not necessarily reflect the actual time of the patient encounter. Departure Diagnosis: Primary Impression: Strep pharyngitis Additional Impression: Otitis media Otitis media type: unspecified Laterality: unspecified laterality Qualified Code: H66.90 - Otitis media, unspecified laterality, unspecified otitis media type Condition: Stable Patient Instructions: Otitis Media, Abx Tx (Adult), Pharyngitis, Strep ( Presumed) Additional Instructions: Call your primary care doctor TOMORROW for an appointment during the next 1-2 days.See the doctor sooner or return here if your condition worsens before your appointment time. JOVANI MILES PA-C Jul 20, 2017 18:46
== END 2017-07-20 14:12 | disposition home or self-care (01) ==
LOC: FTE 11:18
DX: J02.0 Streptococcal pharyngitis (principal); H66.91 Otitis media, unspecified, right ear
CPT/HCPCS: 99283

== ENCOUNTER 2017-10-05 16:32 | Emergency (ER) | END 2017-10-05 19:10 | disposition home or self-care (01) ==

== ENCOUNTER 2018-12-30 20:22 | Emergency (ER) | payer OTHER ==
[~2018-12-30] VITALS: Ht 170.2 cm; Wt 84.6 kg
[~2018-12-30 20:22] MED LIST changes: +AMOX1TAB10 PO; +AMOX500C2 PO; +HYDR-4011 PO; -HYDR-906 PO; -NAPR-260 PO; +NAPR-985 PO
[2018-12-30 20:24] VITALS: Ht 170.2 cm; Wt 84.6 kg
[2018-12-30] MEDS ORDERED: CLOT30CR24 TOP (21:23)
--- NOTE | 2018-12-30 21:25 | ERD ---
ER Documentation Chief Complaint Chief Complaint SKIN RASH X'S 6 WEEKS ROS All systems reviewed and are negative except as per history of present illness. Medications Home Meds Active Scripts Clotrimazole* (Clotrimazole* AF) 1% - 30 Gm Cream.gm., 1 APPLIC TOP BID for fungal rash for 28 Days, #1 TUB Prov:SAE HILL 12/30/18 Ibuprofen* (Motrin*) 600 Mg Tab, 600 MG PO Q6, #30 TAB Prov:JANETTE CHANDLER PA-C 10/05/17 Hydrocodone/Acetaminophen ([place] 5-325 Tablet) 1 Each Tablet, 1 TAB PO Q6H PRN for PAIN, #7 TAB Prov:JANETTE CHANDLER PA-C 10/05/17 Amoxicillin/Potassium Clav (Amox-Clav 875-125 mg Tablet) 875-125 mg Tab, 1 TAB PO BID for 7 Days, #14 TAB Prov:JANETTE CHANDLER PA-C 10/05/17 Ibuprofen* (Motrin*) 600 Mg Tab, 600 MG PO Q6, #30 TAB Prov:JOVANI MILES PA-C 07/20/17 Amoxicillin* (Amoxicillin*) 500 Mg Cap, 500 MG PO BID for 7 Days, CAP Prov:JOVANI MILES PA-C 07/20/17 Metoclopramide* (Reglan*) 10 Mg Tablet, 10 MG PO TID PRN for NAUSEA AND/OR VOMITING for 7 Days, #21 TAB Prov:MARTY OROPEZA PA-C 04/09/17 Ciprofloxacin Hcl* (Ciprofloxacin Hcl*) 500 Mg Tablet, 500 MG PO BID for 7 Days, TAB Prov:JAJA HARRIS PA-C 04/03/17 Hydrocodone/Acetaminophen ([place] 5-325 Tablet) 1 Each Tablet, 1-2 TAB PO Q6H PRN for PAIN, #30 TAB Prov:JAJA HARRIS PA-C 04/03/17 Ciprofloxacin Hcl* (Ciprofloxacin Hcl*) 500 Mg Tablet, 500 MG PO BID for 7 Days, TAB Prov:MARTY OROPEZA PA-C 10/19/16 Naproxen* (Naprosyn*) 500 Mg Tablet, 500 MG PO BID PRN for PAIN AND/OR IN FLAMMATION, #30 TAB Prov:MARTY OROPEZA PA-C 10/19/16 Hydrocodone/Acetaminophen ([place] 5-325 Tablet) 1 Each Tablet, 1 TAB PO Q6H PRN for PAIN, #12 TAB Prov:MARTY OROPEAZRadha KINGSLEY 10/19/16 Ibuprofen* (Ibuprofen*) 600 Mg Tablet, 600 MG PO Q6H PRN for PAIN, #30 TAB Prov:JAJA HARRIS PA-C 10/17/16 Hydrocodone/Acetaminophen ([place] 5-325 Tablet) 1 Each Tablet, 1 EACH PO Q4 PRN for PAIN LEVEL 6-10, #7 TAB Prov:JAJA HARRIS-C 10/17/16 Allergies Allergies: Coded Allergies: No Known Allergy (Unverified , 07/20/17) PMhx/Soc History of Surgery: Yes (LITHOTRIPSY 2016) Anesthesia Reaction: No Hx Neurological Disorder: No Hx Respiratory Disorders: No Hx Cardiac Disorders: No Hx Psychiatric Problems: No Hx Miscellaneous Medical Probl: Yes (LEFT KIDNEY STONE) Hx Alcohol Use: No Hx Substance Use: No Hx Tobacco Use: No Smoking Status: Never smoker Physical Exam Vitals Vital Signs Date Temp Pulse Resp B/P (MAP) Pulse Ox O2 O2 Flow FiO2 Time Delivery Rate 12/30/18 98.3 65 18 125/72 100 20:24 (89) Physical Exam Const: No acute distress Head: Atraumatic Eyes: Normal Conjunctiva ENT: Normal External Ears, Nose and Mouth. Neck: Full range of motion. No meningismus. Resp: Clear to auscultation bilaterally Cardio: Regular rate and rhythm, no murmurs Abd: Soft, non tender, non distended. Normal bowel sounds Skin: No petechiae or rashes Back: No midline or flank tenderness Ext: No cyanosis, or edema Neur: Awake and alert Psych: Normal Mood and Affect Departure Diagnosis: Primary Impression: Rash Condition: Fair Patient Instructions: Self-Care for Skin Rashes, Tinea Corporis Referrals: COMMUNITY CLINICS YOU HAVE RECEIVED A MEDICAL SCREENING EXAM AND THE RESULTS INDICATE THAT YOU DO NOT HAVE A CONDITION THAT REQUIRES URGENT TREATMENT IN THE EMERGENCY DEPARTMENT. FURTHER EVALUATION AND TREATMENT OF YOUR CONDITION CAN WAIT UNTIL YOU ARE SEEN IN YOUR DOCTORS OFFICE WITHIN THE NEXT 1-2 DAYS. IT IS YOUR RESPONSIBILITY TO MAKE AN APPOINTMENT FOR FOLOW-UP CARE. IF YOU HAVE A PRIMARY DOCTOR --you should call your primary doctor and schedule an appointment IF YOU DO NOT HAVE A PRIMARY DOCTOR YOU CAN CALL OUR PHYSICIAN REFERRAL HOTLINE AT IF YOU CAN NOT AFFORD TO SEE A PHYSICIAN YOU CAN CHOSE FROM THE FOLLOWING [facility] [address] [facility] [address] [facility] [address] [facility] [address] [facility] [address] [facility]. [facility]. [address] Additional Instructions: Llame al doctor MAANA y abraham mame GUILLERMO PARA DENTRO DE 1-2 [place].Dgale a la secretaria que nosotros le instruimos hacer esta guillermo.Avise o llame si starr condicin se empeora antes de la guillermo. Regresa aqui si peor o no mejor. Call your primary care doctor TOMORROW for an appointment during the next 1-2 days.See the doctor sooner or return here if your condition worsens before your appointment time. Follow up with casino dealer if skin rash does not improved with treatment. SAE HILL DO Dec 30, 2018 21:25
[2018-12-30 21:35] VITALS: BP 122/71; PULSE 74; RESP 20
== END 2018-12-30 21:36 | disposition home or self-care (01) ==
LOC: FTE 20:22
DX: R21 Rash and other nonspecific skin eruption (principal)
CPT/HCPCS: 99282